=== PATIENT | male | born 1970 | race Caucasian/White ===

== ENCOUNTER → 2022-08-17 | Outpatient (CLI) | payer BC ==
[~2022-08-17] MED LIST: ASP81CT PO; DEXL60CA5 PO; IBP600T1 PO; LRT10T PO; NIA500ERT PO; OMEG-12 PO; PNT40TEC PO; PRV20T PO
[2022-08-17 14:19] VITALS: BP 119/64
--- NOTE | 2022-08-17 17:35 | Cardiology Stress Test Report ---
Stress Test Report Date of Procedure/Referring: Date of Procedure: Aug 17, 2022 PCP Michelle Cleveland MD Admitting Physician Admitting Physician: Attending Physician: Enoch Orellana MD Indications: cp Baseline Heart Rate: 63 Baseline Blood Pressure: Blood Pressure Systolic: 119 Blood Pressure Diastolic: 64 Baseline EKG: Baseline EKG: NSR Summary/Conclusion: Summary: In summary, the patient started exercising with a baseline heart rate, blood pressure and EKG mentioned above Patient was able to exercise for a total of 14 minutes on Nhan protocol, METs 14.7 Maximum heart rate 145 Maximum blood pressure 209/80 Stress EKG, nondiagnostic changes in V1. V2. Recovery EKG , Return to baseline Conclusion: 1. Good exercise tolerance for a total of minutes on Nhan protocol, METs, achieving percent of maximum expected heart rate 2. Minimal nondiagnostic EKG changes with exercise returned to baseline during recovery 3. No arrhythmia was noted Copy Copies To 1: MICHELLE CLEVELAND MD, BASHAR J MD Aug 17, 2022 17:35
== END ==
LOC: CARD 13:26
PROVIDERS: ATTEND Internal Medicine Cardiovascular Disease
DX: I25.10 Atherosclerotic heart disease of native coronary artery without angina pectoris (principal); I10 Essential (primary) hypertension
CPT/HCPCS: 93017; C8929; 93306